=== PATIENT | male | born 1985 | race Caucasian/White ===

== ENCOUNTER 2017-05-29 11:06 | Emergency (ER) | payer SELFPAY ==
[2017-05-29] MEDS ORDERED: PROPARACAINE 0.5% 15 ML OPHT DROP RTEYE ONE (11:28)
[2017-05-29] MEDS ORDERED: FLUORESCEIN SOD/BENOXINATE HCL 20 DROPS/ML OPHT.BTL ONE (11:31)
[2017-05-29] MEDS ORDERED: FLUORESCEIN SOD/BENOXINATE HCL 20 DROPS/ML OPHT.BTL OP ONE (11:34)
--- NOTE | 2017-05-29 11:54 | EDPHY ---
H & P Time Seen by Provider: 05/29/17 11:27 HPI/ROS: CHIEF COMPLAINT: Foreign body sensation in right eye HISTORY OF PRESENT ILLNESS: 31-year-old male presents with a foreign body sensation in his right eye. He was using a saw to cut a metal fence post yesterday, when something flew into his eye. Immediate onset of foreign body sensation in the right eye, associated with excessive tearing. This morning, he continues to have a foreign body sensation and decreased vision. The pain only occurs with blinking. Past Medical/Surgical History: Denies Smoking Status: Former smoker Physical Exam: Visual Acuity: noted from Nurse's notes. Lids: Upper lid everted, no foreign body visible, no proptosis, no periorbital erythema or swelling, Conjunctivae: erythema present, no discharge Pupils:equal round and reactive to light EOMI Cornea: Oval area of fluorescein uptake in the 8 o'clock position Anterior chamber:Clear, no hyphema Constitutional: Initial Vital Signs Temperature (C) 37.2 C 05/29/17 11:14 Heart Rate 83 05/29/17 11:14 Respiratory Rate 16 05/29/17 11:14 Blood Pressure 133/93 H 05/29/17 11:14 O2 Sat (%) 97 05/29/17 11:14 O2 Delivery Mode Room Air Allergies/Adverse Reactions: No Known Allergies Allergy (Verified 05/29/17 11:20) Home Medications: Medication Instructions Recorded Ofloxacin 0.3% [Ocuflox 0.3% (RX)] 2 drops RTEYE Q6 #1 opht.btl 05/29/17 Medical Decision Making ED Course/Re-evaluation: This patient presents with a foreign body sensation in the right eye that occurred while cutting metal. Corneal abrasion is present, no foreign body visible. The corneal abrasion extends to the pupil and is most likely reason for the change in vision. Visual acuity in the right eye is 20/50. He declines orbital x-ray. He clearly understands that the x-ray is utilized to ensure that there is no foreign body within the orbit and still declines. He was strongly encouraged to follow up with Ophthalmology if the pain or change in vision persists tomorrow. Differential Diagnosis: Differential diagnosis includes hyphema, acute iritis, traumatic mydriasis, corneal abrasion, FB in orbit, globe rupture. Departure - Departure Disposition: Home, Routine, Self-Care Clinical Impression: Corneal abrasion Qualifiers: Encounter type: initial encounter Laterality: right Qualified Code(s): S05.01XA - Injury of conjunctiva and corneal abrasion without foreign body, right eye, initial encounter Condition: Good Instructions: Corneal Abrasion (ED) Referrals: Tyree Garcia MD [Medical Doctor] - 1 day, if not improved (Follow-up tomorrow if pain persists or if your vision is decreased from usual. ) Prescriptions: Ofloxacin 0.3% [Ocuflox 0.3% (RX)] 2 drops RTEYE Q6 #1 opht.btl
[2017-05-29 12:30] VITALS: BP 130/90
== END 2017-05-29 12:29 | disposition home or self-care (01) ==
LOC: CED 11:06
DX: S05.01XA Injury of conjunctiva and corneal abrasion without foreign body, right eye, initial encounter (principal); Z87.891 Personal history of nicotine dependence; X58.XXXA Exposure to other specified factors, initial encounter
CPT/HCPCS: 70200-PO